=== PATIENT | male | born 1940 | race Two or more races ===

== ENCOUNTER 2019-11-18 18:26 | Inpatient (IN) | payer OTHER ==
[~2019-11-18] VITALS: Ht 154.9 cm; Wt 64.0 kg
[2019-11-18 19:49] LABS: BASOPHIL % 0.8 % (0-2); PLATELET COUNT 191 x10^3mcL (130-400); RED CELL DISTRIBUTION WIDTH 13.5 % (11.5-14.5)
[2019-11-18 20:00] LABS: ALKALINE PHOSPHATASE 93 U/L (46-116); ALT/SGPT 13 U/L (16-63); AST/SGOT 26 U/L (15-37); BILIRUBIN TOTAL 0.66 mg/dL (0.20-1.00); CALCIUM 8.9 mg/dL (8.5-10.1); CARBON DIOXIDE 16.4 mmol/L (21-32); CHLORIDE SERUM 79 mmol/L (98-107); GLUCOSE SERUM 100 mg/dL (74-106); TOTAL PROTEIN, SERUM 7.1 g/dL (6.4-8.2)
[2019-11-18 20:10] LABS: ALBUMIN 2.9 g/dL (3.4-5.0); CREATININE SERUM 17.7 mg/dL (0.7-1.3); POTASSIUM SERUM 6.5 mmol/L (3.5-5.1); SODIUM SERUM 115 mmol/L (136-145)
[2019-11-18 21:17] LABS: UA SPECIFIC GRAVITY 1.015 (1.005-1.035); microscopic required? YES; urine erythrocyte 3+ (NEGATIVE)
[2019-11-18] MEDS ORDERED: ASPIRIN ADULT L81 M5 PO (21:42)
[2019-11-18] MEDS ORDERED: XARELTO10 M1 PO (21:43)
[2019-11-18] MEDS ORDERED: HYDROCHLOROTH12.5 M3 PO (21:44)
[2019-11-18] MEDS ORDERED: METOPROLOL SUCC50 M2 PO (21:44)
[2019-11-18] MEDS ORDERED: FLO4 PO (21:44)
[2019-11-18] MEDS ORDERED: LOVASTATIN40 MG PO (21:45)
[2019-11-18 23:33] LABS: CARBON DIOXIDE 16 mmol/L (21-32); CHLORIDE SERUM 84 mmol/L (98-107); GLUCOSE SERUM 148 mg/dL (74-106); POTASSIUM SERUM 4.7 mmol/L (3.5-5.1)
[2019-11-18 23:34] LABS: CALCIUM 8.8 mg/dL (8.5-10.1)
[2019-11-18 23:36] LABS: SODIUM SERUM 117 mmol/L (136-145)
[2019-11-18 23:37] LABS: CREATININE SERUM 14.8 mg/dL (0.7-1.3)
[2019-11-19 02:30] VITALS: BP 128/58
[2019-11-19 05:50] LABS: ALKALINE PHOSPHATASE 94 U/L (46-116); ALT/SGPT 12 U/L (16-63); AST/SGOT 33 U/L (15-37); BILIRUBIN TOTAL 0.72 mg/dL (0.20-1.00); CALCIUM 9.7 mg/dL (8.5-10.1); CARBON DIOXIDE 22.2 mmol/L (21-32); CHLORIDE SERUM 93 mmol/L (98-107); GLUCOSE SERUM 111 mg/dL (74-106); POTASSIUM SERUM 4.2 mmol/L (3.5-5.1); SODIUM SERUM 131 mmol/L (136-145)
[2019-11-19 05:54] LABS: ALBUMIN 2.9 g/dL (3.4-5.0); CREATININE SERUM 7.2 mg/dL (0.7-1.3)
[2019-11-19 08:33] VITALS: BP 152/73
[2019-11-19 08:47] VITALS: Ht 154.9 cm; Wt 64.0 kg
[2019-11-19 11:05] VITALS: BP 123/59
[2019-11-19 15:19] VITALS: BP 118/82
[2019-11-19 19:20] VITALS: BP 111/66
[2019-11-19 23:09] VITALS: BP 109/65
[2019-11-20 05:21] VITALS: BP 118/71
[2019-11-20 06:53] LABS: CALCIUM 9.3 mg/dL (8.5-10.1); CARBON DIOXIDE 32.6 mmol/L (21-32); CHLORIDE SERUM 98 mmol/L (98-107); CREATININE SERUM 1.3 mg/dL (0.7-1.3); GLUCOSE SERUM 107 mg/dL (74-106); POTASSIUM SERUM 3.3 mmol/L (3.5-5.1); SODIUM SERUM 140 mmol/L (136-145)
[2019-11-20 08:37] VITALS: BP 130/55
[2019-11-20 09:04] LABS: PLATELET COUNT 229 x10^3mcL (130-400); RED CELL DISTRIBUTION WIDTH 13.4 % (11.5-14.5)
[2019-11-20 09:05] LABS: BASOPHIL % 0.4 % (0-2)
[2019-11-20 11:57] VITALS: BP 142/64
[2019-11-20 16:33] VITALS: BP 111/60
[2019-11-20 20:50] VITALS: BP 99/66
[2019-11-21 05:22] VITALS: BP 115/65
[2019-11-21 06:05] LABS: PLATELET COUNT 217 x10^3mcL (130-400)
[2019-11-21 06:32] LABS: ALKALINE PHOSPHATASE 72 U/L (46-116); ALT/SGPT 16 U/L (16-63); AST/SGOT 28 U/L (15-37); BILIRUBIN DIRECT 0.14 mg/dL (0.0-0.2); BILIRUBIN TOTAL 0.6 mg/dL (0.20-1.00); CALCIUM 8.7 mg/dL (8.5-10.1); CARBON DIOXIDE 32.6 mmol/L (21-32); CHLORIDE SERUM 100 mmol/L (98-107); CREATININE SERUM 0.9 mg/dL (0.7-1.3); GLUCOSE SERUM 100 mg/dL (74-106); SODIUM SERUM 138 mmol/L (136-145); TOTAL PROTEIN, SERUM 6.4 g/dL (6.4-8.2)
[2019-11-21 07:00] LABS: ALBUMIN 2.8 g/dL (3.4-5.0); POTASSIUM SERUM 2.9 mmol/L (3.5-5.1)
[2019-11-21] MEDS ORDERED: CIPRO500 MG PO (07:57)
[2019-11-21 08:02] VITALS: BP 119/70
[2019-11-21 11:39] VITALS: BP 117/61
[2019-11-21 12:55] VITALS: BP 117/61
[2019-11-21 15:45] VITALS: BP 114/64
== END 2019-11-21 18:20 | disposition home health service (06) | DRG 726 ==
LOC: ED 18:26 → DU 22:40 → IC 22:40 → DU 11-20 01:19
PROVIDERS: Emergency Medicine; Specialist; ADMIT Internal Medicine
DX: N40.1 Benign prostatic hyperplasia with lower urinary tract symptoms (principal); N13.8 Other obstructive and reflux uropathy; N17.9 Acute kidney failure, unspecified; E87.1 Hypo-osmolality and hyponatremia; I48.91 Unspecified atrial fibrillation; E78.5 Hyperlipidemia, unspecified; R91.8 Other nonspecific abnormal finding of lung field; E87.5 Hyperkalemia; I10 Essential (primary) hypertension; Z79.82 Long term (current) use of aspirin; Z68.27 Body mass index [BMI] 27.0-27.9, adult; Z79.01 Long term (current) use of anticoagulants
CPT/HCPCS: 82962; 87804; 97110-GP; 97116-GP; G0378; J0456; J0610; J0696; J1815; J3490; J7030; J7040; J7050; J7060; J7613; J7620